=== PATIENT | male | born 1930 | race Caucasian/White ===

== ENCOUNTER 2018-08-23 13:20 | Outpatient (CLI) | END 2018-08-23 13:21 | disposition home or self-care (01) | LOC: NONPT 13:20 | PROVIDERS: ATTEND Surgery | DX: I11.0 Hypertensive heart disease with heart failure (principal); I50.32 Chronic diastolic (congestive) heart failure | CPT/HCPCS: 80053; 83880; 85027 ==

== ENCOUNTER 2018-12-13 15:45 | Outpatient (CLI) | END 2018-12-13 15:46 | disposition home or self-care (01) | LOC: NONPT 15:45 | PROVIDERS: ATTEND Surgery | DX: N39.0 Urinary tract infection, site not specified (principal) | CPT/HCPCS: 81001; 87086; 87186 ==